=== PATIENT | male | born 1950 | race Caucasian/White ===

== ENCOUNTER 2017-02-17 08:40 | Day surgery (SDC) | payer OTHER ==
[~2017-02-17] VITALS: Ht 163.8 cm; Wt 73.5 kg
[~2017-02-17 08:40] MED LIST: 0.9% Sodium Chloride 1,000 ML IV SCH; Sodium Chloride LOK Flush 10 mL Syringe IV PRN; fentaNYL-PF 50 mCg/mL 2 mL Inj IVPUSH PRN
[2017-02-17 08:59] VITALS: BP 115/71; PULSE 53; RESP 16; O2SAT 98
[2017-02-17] MEDS ORDERED: SAWP1CAP PO (09:03)
[2017-02-17] MEDS ORDERED: [UNRECOGNIZED DRUG - OTHER] PO (09:03)
[2017-02-17] MEDS ORDERED: CHOL10008 PO (09:03)
[2017-02-17 10:02] VITALS: BP 99/62; PULSE 59; RESP 14; O2SAT 93
[2017-02-17 10:13] VITALS: BP 101/65; PULSE 57; RESP 14; O2SAT 93
[2017-02-17 10:19] VITALS: BP 116/73; PULSE 59; RESP 14; O2SAT 96
--- NOTE | 2017-02-17 10:19 | ENDO ---
[address] [address] ENDOSCOPY PROCEDURE PATIENT: SUSHILA COBB : 1950 MR#: [id number] ADMIT: 02/17/2017 JOB ID: [id number] DATE: 02/17/2017 COLONOSCOPY INDICATION: Patient with a personal history of colon polyps. ASA CLASSIFICATION: 2. MALLAMPATI SCORE: 2. MEDICATIONS: 1. Versed at 3 mg. 2. Fentanyl 75 mcg. INSTRUMENT USED: PCFH 180 AL. PREPARATION QUALITY: Fair. PROCEDURE DETAILS: After informed consent was obtained, the patient was brought to the GI suite, where he was placed on oxygen via nasal cannula and monitored with continuous pulse oximeter, telemetry, and blood pressure monitoring. A time-out was performed. Then, he was placed in a left lateral decubitus position and medications were administered for sedation. Digital rectal exam was performed, which was unremarkable. The colonoscope was then inserted into the rectum and advanced under direct visualization to the cecum, which is identified by the presence of the ileocecal valve and appendiceal orifice. Once the cecum was reached, the colonoscope was withdrawn back into the rectum as the mucosa and lumen were examined. In the rectum, retroflexion was performed. Following retroflexion, remaining air in the rectum was suctioned, and procedure was completed. FINDINGS: 1. In the transverse colon, there was a diminutive polyp which was removed with cold biopsy forceps. 2. In the descending colon, there were two diminutive polyps that were removed with cold biopsy forceps. 3. Scattered diverticula were seen throughout the left side of the colon. IMPRESSION: 1. Two descending colon polyps. 2. One transverse colon polyp. RECOMMENDATIONS: 1. Repeat colonoscopy pending polyp pathology results. 2. Fiber rich diet. COMPLICATIONS: None. ESTIMATED BLOOD LOSS: Less than 5 mL. Cc: Primary care physician, Dr. Filipe Adams.
--- NOTE | 2017-02-21 14:58 | PATH ---
SURGICAL PATHOLOGY Attending Physician:Sona Helton CASE STATUS: Signed Out PATIENT NAME: SUSHILA COBB PID: [id number] : 1950 DATE COLLECTED:02/17/2017 22:23 SPECIMEN: 1: Colon, Polyp 2: Colon, Polyp CLINICAL HISTORY: 1). TRANSVERSE COLON POLYP 2). DESCENDING COLON POLYPS FINAL DIAGNOSIS: NOTE: 1.TRANSVERSE COLON POLYP: POLYPOID-SHAPED FRAGMENT OF COLON MUCOSA CONSISTENT WITH MUCOSAL POLYPOID REDUNDANCY. Negative for evidence of neoplasm and significant hyperplasia on multiple sections. 2.DESCENDING COLON POLYPS: POLYPOID-SHAPED FRAGMENTS OF COLON MUCOSA CONSISTENT WITH MUCOSAL POLYPOID REDUNDANCIES. Negative for evidence of neoplasm and significant hyperplasia on multiple sections. ICD10 K63.5 GROSS DESCRIPTION: Received are two formalin-filled containers, each labeled with the patient's name. 1. Received in formalin, labeled with the patient's name and "transverse colon polyp" is one fragment of melgar soft tissue measuring 0.1 x 0.1 x 0.1 cm. The fragment is totally submitted in cassette 1A. 2. Received in formalin, labeled with the patient's name and "descending colon polyp" are two fragments of melgar soft tissue ranging in size from less than 0.1 by less than 0.1 by less than 0.1 cm to 0.1 x 0.1 x 0.1 cm. All fragments are totally submitted in cassette 2A. ([id number]) MICRO DESCRIPTION: See diagnosis. ICD-9 CODES: CPT CODES: 1: 29146 2: 70163 Electronically Signed Out Manuel Alan MD [facility] [address], [place] [address] Technical component performed at [facility], [facility] [address], [address]
== END 2017-02-17 23:59 | disposition home or self-care (01) ==
LOC: END 08:40
PROVIDERS: ATTEND Internal Medicine Gastroenterology
DX: Z12.11 Encounter for screening for malignant neoplasm of colon (principal); K63.5 Polyp of colon; K57.30 Diverticulosis of large intestine without perforation or abscess without bleeding; E78.00 Pure hypercholesterolemia, unspecified; Z86.010 Personal history of colon polyps; Z96.641 Presence of right artificial hip joint; Z85.828 Personal history of other malignant neoplasm of skin; Z87.891 Personal history of nicotine dependence
CPT/HCPCS: 45380; G0500; J2250; J3010; J7030